=== PATIENT | female | born 1945 | race Caucasian/White ===

== ENCOUNTER 2016-07-29 06:49 | Inpatient (IN) ==
--- NOTE | 2016-07-28 21:08 | Discharge Summary ---
<Linda Moyer - Last Filed: 07/28/16 21:05> Date of Encounter: 07/28/16 - Discharge Diagnosis (1) Arthritis of left hip Priority: Primary Status: Acute (2) HTN (hypertension) Priority: Secondary Status: Chronic Qualifiers: Hypertension type: essential hypertension Qualified Code(s): I10 - Essential (primary) hypertension (3) Hypothyroid Priority: Secondary Status: Chronic Qualifiers: Hypothyroidism type: unspecified Qualified Code(s): E03.9 - Hypothyroidism , unspecified (4) DMII (diabetes mellitus, type 2) Priority: Secondary Status: Chronic Qualifiers: Diabetes mellitus complication status: with unspecified complications Diabetes mellitus senior care insulin use: unspecified senior care insulin use status Qualified Code(s): E11.8 - Type 2 diabetes mellitus with unspecified complications (5) Obesity Priority: Secondary Status: Chronic Qualifiers: Obesity type: unspecified obesity type Obesity severity: unspecified obesity severity Qualified Code(s): E66.9 - Obesity, unspecified (6) Hyponatremia Priority: Secondary Status: Chronic - Discharge Medications Home Medications: Amitriptyline HCl 100 mg PO DAILY 07/29/16 [History] Aspirin [Lo-Dose Aspirin EC] 81 mg PO DAILY 07/29/16 [History] Omeprazole 20 mg PO DAILY 07/29/16 [History] Propranolol LA (24 HR) [Inderal LA] 80 mg PO DAILY 07/29/16 [History] clonazePAM [Clonazepam] 0.5 mg PO DAILY 07/29/16 [History] Amlodipine Besylate 10 mg PO DAILY 07/30/16 [History] Levothyroxine [Synthroid] 100 mcg PO 30 07/30/16 [History] Losartan/Hydrochlorothiazide [Hyzaar 100-12.5 Tablet] 1 each PO DAILY 07/30/16 [ History] Meloxicam 7.5 mg PO BID 07/30/16 [History] Simvastatin [Zocor] 20 mg PO HS 07/30/16 [History] Venlafaxine [Effexor] 75 mg PO BID 07/30/16 [History] metFORMIN [Glucophage] 500 mg PO BIDWM 07/30/16 [History] Allergies/Adverse Reactions: Allergies codeine Allergy (Verified 07/30/16 11:12) Nausea diazepam [From Valium] Allergy (Verified 07/30/16 11:12) Agitated Primary care physician: Navneet Gustafson MD - Patient Status Disposition: Transfer Inpatient Rehab Fac Condition: Good - Discharge Instructions Follow Up With: Navneet Gustafson MD [Primary Care Provider] - - Hospital Course Hospital course: Ms. Lebron is a 70 year old female - Time Spent with Patient Total time spent providing and/or coordinating discharge services: <Charles Ribera - Last Filed: 08/01/16 08:08> Date of Encounter: 08/01/16 Time of Encounter: 08:08 - Discharge Diagnosis (1) Arthritis of left hip Priority: Primary Status: Acute (2) HTN (hypertension) Priority: Secondary Status: Chronic Qualifiers: Hypertension type: essential hypertension Qualified Code(s): I10 - Essential (primary) hypertension (3) Hypothyroid Priority: Secondary Status: Chronic Qualifiers: Hypothyroidism type: unspecified Qualified Code(s): E03.9 - Hypothyroidism , unspecified (4) DMII (diabetes mellitus, type 2) Priority: Secondary Status: Chronic Qualifiers: Diabetes mellitus complication status: with unspecified complications 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 Lebron is a 70 year old female The patient had an uneventful postoperative course. They received antibiotics and physical therapy and were discharged in stable condition. There will follow -up in the office in 2 weeks. Aspirin DVT prophylaxis - Time Spent with Patient Total time spent providing and/or coordinating discharge services:
[2016-07-29] MEDS ORDERED: Lidocaine -MPF 1% 2 ML VIAL ID ONE (07:43)
[2016-07-29] MEDS ORDERED: CeFAZolin Pre 2,000 MG/100 ML 2,000 MG/100 ML BAG IVPB ONE (07:43)
[2016-07-29] MEDS ORDERED: Ringers Solution, Lactated 1,000 ML IVC SCH ×3 (07:45→12:12)
--- NOTE | 2016-07-29 07:50 | History & Physical Report ---
Date of Encounter: 07/29/16 Time of Encounter: 07:50 24 Hour HP Update - Instructions Instructions: If the History and Physical is less than 30 days old and was completed prior to A.M. admission and or procedure and has NOT been updated on calendar day of procedure please complete this update prior to performing procedure. - Update Patient reports changes in Medical Condition: No Changes in examination, assessment, or condition: No Changes in Medication: No Preop tests/diagnostics Reviewed: Yes Surgery Remains Indicated: Yes Consent for Planned Operative Procedure(s) Verified: Yes - Pre-Operative Checklist Preoperative Checklist Indicated: No Prophylactic Antibiotic Ordered: Yes Is VTE Prophylaxis Indicated?: Yes
[2016-07-29] MEDS ORDERED: Famotidine 20 MG/2 ML VIAL IVP ONE (08:16)
[2016-07-29] MEDS ORDERED: Gabapentin 300 MG CAPSULE PO ONE (08:17)
[2016-07-29] MEDS ORDERED: Scopolamine Patch 1.5 MG PATCH.TD72 TD ONE (08:24)
[2016-07-29] MEDS ORDERED: *HR* Midazolam HCl 2 MG/2 ML VIAL ONE (08:27)
[2016-07-29] MEDS ORDERED: *HR* FentaNYL (PF) 100 MCG/2 ML VIAL ONE (08:27)
[2016-07-29] MEDS ORDERED: *HR* Propofol 200 MG/20 ML VIAL IVP ONE (08:27)
--- NOTE | 2016-07-29 08:27 | Anesthesia Evaluation PreOp ---
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 Significant HX Other Medical History: Diabetes Type II (Accu Check 130), GERD, Other (PUD) Anesthesia History: Past Anesthesia, Problems (Severe N/V patient states Scopolamine helpful in past) : No Alcohol Use: none Drug use: none Medications and Allergies Amitriptyline HCl [Amitriptyline HCl] 1 tab PO DAILY 07/29/16 [History] Aspirin [Lo-Dose Aspirin EC] 81 mg PO DAILY 07/29/16 [History] Glipizide/Metformin HCl [Glipizide-Metformin 2.5-500 mg] 1 tab PO DAILY [History] Levothyroxine Sodium [Tirosint] 50 mcg PO DAILY 07/29/16 [History] Omeprazole [Omeprazole] 20 mg pe PO DAILY 07/29/16 [History] Propranolol LA (24 HR) [Inderal LA] 80 mg pe PO DAILY 07/29/16 [History] amLODIPine [Norvasc] mg PO 07/29/16 [History] clonazePAM [Clonazepam] 0.5 mg PO DAILY 07/29/16 [History] Allergies codeine Allergy (Verified 08/18/15 07:32) Nausea diazepam [From Valium] Allergy (Verified 08/18/15 07:32) Agitated - Meds/Allergy Pre-op Review Medications Reviewed: Yes Allergies Reviewed: Yes Beta Blockers on Current Med List: No Anesthesia Results - Labs Laboratory Tests 07/19/16 07/19/16 12:15 12:15 Hgb 13.5 Hct 39.7 Plt Count 274 Sodium 131 L Potassium 4.0 BUN 16 Creatinine 0.77 - Imaging EKG: report reviewed (SR) Anesthesia Exam O2 Sat Height 1.65 m Height 1.65 m Height 1.65 m Weight 104.326 kg Weight 104.326 kg Weight 104.326 kg O2 Sat by Pulse Oximetry 95 O2 Sat by Pulse Oximetry 95 Vital Signs Temp Pulse Resp BP Pulse Ox 98.0 F 77 18 146/79 95 07/29/16 07:17 07/29/16 07:17 07/29/16 07:17 07/29/16 07:17 07/29/16 07:17 Height: 5'5 Weight: 230 lbs NPO (# of Hours): MN Pain Scale: 0 - HEENT Pupil (Motor): Pupils equal, EOMI Mallampati: III Teeth: Edentulous Oral Opening: Less than or equal to 3 - ANTI [employer] OFFICER LOC: Oriented ANTI [employer]PERATIONS OFFICER Motor: Normal RUE, Normal LUE, Normal RLE, Normal LLE, Normal Face ANTI [employer] OFFICER Sensory: Normal: RUE, LUE, RLE, LLE, Face - Cardiac Rhythm: Regular Murmur: None JVD: No Carotid Bruit: No - Pulmonary Breath Sounds: bilateral Clear Anesthesia Assess/Plan ASA Score: 3 (HTN DM PUD) Modified [place] Scale for Level of Consciousness: Cooperative, oriented, and tranquil Anesthetic Plan: General Monitoring Plan: Standard Monitors Recovery Plan: PACU (Discussed GA, agrees to proceed)
[2016-07-29] MEDS ORDERED: Lidocaine -MPF 4% 5 ML AMPUL ONE (08:29)
[2016-07-29] MEDS ORDERED: Lidocaine -MPF 2% 2 ML VIAL ONE (08:29)
[2016-07-29] MEDS ORDERED: Dexamethasone 4 MG/ML VIAL ONE (09:51)
[2016-07-29] MEDS ORDERED: Ondansetron 4 MG/2 ML VIAL ONE (09:51)
[2016-07-29] MEDS ORDERED: *HR* HYDROmorphone 2 MG/ML SYRINGE ONE (09:53)
[2016-07-29] MEDS ORDERED: Ondansetron 4 MG/2 ML VIAL IVP ONE (09:55)
[2016-07-29] MEDS ORDERED: Albuterol 2.5 MG/3 ML NEBULIZER IH ONE (09:55)
[2016-07-29] MEDS ORDERED: *HR* Meperidine 25 MG/ML SYRINGE IVP PRN (09:55)
[2016-07-29] MEDS ORDERED: *HR* HYDROmorphone (PF) 1 MG/ML SYRINGE IVP PRN ×2 (09:55→12:12)
[2016-07-29] MEDS ORDERED: Naloxone 0.4 MG/ML INJ IVP PRN ×2 (09:55→12:12)
[2016-07-29] MEDS ORDERED: *HR* Labetalol 100 MG/20 ML MDV IVP PRN (09:55)
--- NOTE | 2016-07-29 10:44 | Orthopedic Operative Note ---
Date of procedure: 07/29/16 Pre-op diagnosis: Left hip arthritis Post-op diagnosis: same Procedure: Procedure: Left Total Hip Replacment Estimated blood loss: 200 cc Hardware: Metal and polyethylene replacement. Biomet DM Cup: 50 G7 fin cup Femoral size 13 echo full profile lateralized stem Head: 3 head with Barbie Procedural Notes: Left hip grade 4 arthritis femoral head acetabular Operative procedure: The patient was brought to the operating room and placed on the operating room table. After general anesthesia was administered the patient was placed in the lateral decubitus position with the operative leg up. All pressure points were padded appropriately and the head was stabilized in the neutral position. The operative extremity was prepped and draped in the sterile surgical fashion patient received IV antibiotic prior to skin incision. A standard posterior approach is made to the operative hip, the incision was made through the skin and subcutaneous tissue hemostasis was obtained with Bovie cautery. Using careful sharp dissection the fascia was identified and incised exposing the external rotators. The external rotators were released off the greater trochanter and tagged with #2 FiberWire suture. The capsule was T'd open and the hip was brought into internal rotation. Patient noted to have grade 4 arthritic changes femoral head. The femoral neck cut was made at the appropriate level. An anterior capsulotomy was performed for the anterior retractor. Soft tissues removed from the acetabulum. Patient noted to have grade 4 arthritic changes acetabulum. Acetabulum was first reamed medially, and then reamed in 15 degrees of anteversion and 45 degrees off the horizontal. It was reamed up to the appropriate size 50. The appropriate-sized 50 acetabular cup was impacted in place in 15 degrees of anteversion and 45 degrees off the horizontal. This had good fit and fixation. The hip was brought back in to internal rotation and prepared with the switch box installer followed by the canal finder followed by broaching process in 20 degrees anteversion. It was broached up to the appropriate size 13. The femoral implant was impacted in place in 20 degrees of anteversion. Trial reduction found the hip to be stable with 3 head and Barbie. The trials were removed and the real implants were impacted in place. The hip was reduced, patient had apparent equal leg lengths. The hip had excellent stability with forward flexion to 90 degrees adduction of 30 degrees and internal rotation of 60 degrees. The hip had no shuck. The hips after 2 minutes with a Betadine saline solution. It was irrigated out with 2 L of pulse irrigation. The external rotators were reattached to drill holes in the greater trochanter. Fascia was closed with a running #2 PDS suture. The deep tissue was irrigated and closed deep with #1 PDS suture superficially with 0 PDS suture and skin was closed with skin evan. The patient was placed in a sterile dressing and abduction pillow. The patient was extubated and transferred to the recovery room in stable condition. Anesthesia: BRENDA Surgeon: Charles Ribera Wet Process Miller Head: Linda Moyer Condition: stable Disposition: PACU
[2016-07-29 12:01] LABS: Hematocrit 38.2 % (35.3-44.9); Hemoglobin 12.6 g/dL (11.5-15.4)
[2016-07-29] MEDS ORDERED: Ondansetron 4 MG/2 ML VIAL IVP PRN (12:12)
[2016-07-29] MEDS ORDERED: MOM Conc 10 ML UD.LIQ PO PRN (12:12)
[2016-07-29] MEDS ORDERED: Sennosides 8.6 MG TABLET PO PRN (12:12)
[2016-07-29] MEDS ORDERED: Temazepam 15 MG CAPSULE PO PRN (12:12)
[2016-07-29] MEDS ORDERED: D5% in Water 1,000 ML IVC PRN (12:12)
[2016-07-29] MEDS ORDERED: *HR* Dextrose 50 % in Water (Syg) 50 ML SYRINGE IVP PRN (12:12)
[2016-07-29] MEDS ORDERED: *HR* OxyCODONE Immed Rel 5 MG TABLET PO PRN (12:12)
[2016-07-29] MEDS ORDERED: Dextrose Gel 15 GM PO PRN ×2 (12:12)
[2016-07-29] MEDS: Insulin LISPRO 300 UNITS/3 ML VIAL SQ SCH ×3 (14:00→20:58)
[2016-07-29] MEDS: Multivit/Ca/Min/Fe/FA 1 TAB TABLET PO SCH (17:15)
[2016-07-29] MEDS: Ascorbic Acid 500 MG TABLET PO SCH (17:16)
[2016-07-29] MEDS ORDERED: *HR* Enoxaparin 30 MG/0.3 ML SYRINGE SQ SCH (18:00)
[2016-07-29] MEDS: ceFAZolin 2,000 MG in D5% in Water 100 ML IVPB SCH (18:46)
[2016-07-29] MEDS: *HR* Enoxaparin 30 MG/0.3 ML SYRINGE SQ SCH (18:46)
[2016-07-29] MEDS: clonazePAM 0.5 MG TABLET PO SCH (21:43)
[2016-07-30] MEDS: *HR* OxyCODONE Immed Rel 5 MG TABLET PO PRN ×4 (01:28→16:04)
[2016-07-30] MEDS: ceFAZolin 2,000 MG in D5% in Water 100 ML IVPB SCH (02:04)
[2016-07-30] MEDS: *HR* Enoxaparin 30 MG/0.3 ML SYRINGE SQ SCH ×2 (05:18→16:40)
[2016-07-30 05:42] LABS: Hematocrit 31.1 % (35.3-44.9)
[2016-07-30 05:47] LABS: Hemoglobin 10.7 g/dL (11.5-15.4)
[2016-07-30 05:58] LABS: BUN/Creatinine Ratio 23 (6-26); Blood Urea Nitrogen 16 mg/dL (7-20); Calcium 9.2 mg/dL (8.6-10.8); Carbon Dioxide 25 mEq/L (19-29); Chloride 95 mEq/L (98-109); Glucose 126 mg/dL (70-99); Osmolality,Calculated 273 (280-300); Potassium 3.9 mEq/L (3.5-4.5); Sodium 130 mEq/L (136-145); eGFR For African Americans > 60 (> 60); eGFR For Non-African Americans > 60 (> 60)
--- NOTE | 2016-07-30 06:28 | Orthopedics Progress Note ---
Date of Encounter: 07/30/16 Time of Encounter: 06:28 - Assessment and Plan (1) Arthritis of left hip Current Visit: Yes Status: Acute (2) HTN (hypertension) Current Visit: Yes Status: Chronic Qualifiers: Hypertension type: essential hypertension Qualified Code(s): I10 - Essential (primary) hypertension (3) Hypothyroid Current Visit: Yes Status: Chronic Qualifiers: Hypothyroidism type: unspecified Qualified Code(s): E03.9 - Hypothyroidism , unspecified (4) DMII (diabetes mellitus, type 2) Current Visit: Yes Status: Chronic Qualifiers: Diabetes mellitus complication status: with unspecified complications Diabetes mellitus custodial insulin use: unspecified custodial insulin use status Qualified Code(s): E11.8 - Type 2 diabetes mellitus with unspecified complications (5) Obesity Current Visit: Yes Status: Chronic Qualifiers: Obesity type: unspecified obesity type Obesity severity: unspecified obesity severity Qualified Code(s): E66.9 - Obesity, unspecified Subjective Interval history: Patient was seen this morning doing well without complaints. Afebrile vital signs stable. Operative extremity: Neurovascularly intact Dressing clean dry and intact Calves nontender Assessment and plan: Continue with postoperative care Hematocrit 31 Objective Vital signs: Vital Signs Temp Pulse Resp BP Pulse Ox 07/30/16 03:54 98.2 F 88 14 124/73 98 07/30/16 00:42 98.2 F 90 14 133/65 96 07/29/16 15:25 97.7 F 68 12 121/69 96 07/29/16 14:15 97.7 F 68 12 130/73 97 07/29/16 13:16 97.7 F 69 10 134/72 96 07/29/16 12:52 97.7 F 65 11 124/74 95 07/29/16 12:32 97 07/29/16 12:30 97.9 F 67 10 128/71 94 07/29/16 12:15 97.9 F 71 10 128/73 96 07/29/16 11:57 74 10 149/89 95 07/29/16 11:47 99.1 F 76 10 159/91 97 07/29/16 11:37 76 12 160/86 98 07/29/16 11:27 79 12 168/94 98 07/29/16 11:17 77 10 156/110 96 07/29/16 11:07 89 8 173/102 92 07/29/16 10:57 99.0 F 76 8 151/81 96 07/29/16 08:00 98.0 F 77 18 146/79 95 07/29/16 07:17 98.0 F 77 18 146/79 95 Intake and Output 07/29/16 07/29/16 07/30/16 15:59 23:59 07:59 Intake Total 100 / 100 550 / 550 595 / 595 Output Total 200 / 200 700 / 700 0 / 0 Balance -100 / -100 -150 / -150 595 / 595 Intake: IV Fluids 100 / 100 100 / 100 Ancef Premix 2,000 MG/100 100 / 100 ML 2,000 mg In 100 ml @ 200 mls/hr IVPB PREOP ONE Rx#:[id number] Ancef 2,000 MG In 100 / 100 Dextrose 5% 100 ML @ 200 mls/hr IVPB Q8H JANET Rx#: [id number] Oral 0 / 0 450 / 450 595 / 595 Output: Urine 0 / 0 700 / 700 0 / 0 Estimated Blood Loss 200 / 200 Other: Weight 104.326 kg 104.2 kg Blood Glucose* 139 228 Patient Weight 07/30/16 23:59 Weight 104.2 kg - Labs CBC & BMP: 07/30/16 05:18 07/30/16 05:18 Labs: Abnormal lab results Hgb 10.7 g/dL (11.5-15.4) L D 07/30/16 05:18 Hct 31.1 % (35.3-44.9) L 07/30/16 05:18 Sodium 130 mEq/L (136-145) L 07/30/16 05:18 Chloride 95 mEq/L (98-109) L 07/30/16 05:18 Glucose 126 mg/dL (70-99) H 07/30/16 05:18 POC Glucose 139 (58-89) H 07/29/16 15:58 Calculated Osmolality 273 (280-300) L 07/30/16 05:18 - VTE Documentation of Mechanical Device: Venous foot pump, device Consult Discharge Plan - Plan Referrals: Navneet Gustafson MD [Primary Care Provider] -
[2016-07-30] MEDS: Insulin LISPRO 300 UNITS/3 ML VIAL SQ SCH ×4 (08:37→20:24)
[2016-07-30] MEDS: *HR* GlipiZIDE 5 MG TABLET PO SCH (08:58)
[2016-07-30] MEDS: Ascorbic Acid 500 MG TABLET PO SCH ×2 (08:58→16:40)
[2016-07-30] MEDS: *HR* Metformin 500 MG TABLET PO SCH (08:58)
[2016-07-30] MEDS: clonazePAM 0.5 MG TABLET PO SCH (08:59)
[2016-07-30] MEDS: amLODIPine 5 MG TABLET PO SCH (08:59)
[2016-07-30] MEDS: Propranolol LA (24 HR) 80 MG CAP.SA.24H PO SCH (08:59)
[2016-07-30] MEDS: Multivit/Ca/Min/Fe/FA 1 TAB TABLET PO SCH (08:59)
[2016-07-30] MEDS: Aspirin Enteric Coated 81 MG Tablet PO SCH (08:59)
[2016-07-30] MEDS ORDERED: clonazePAM 0.5 MG TABLET PO SCH ×2 (09:00→22:00)
[2016-07-31] MEDS: *HR* Enoxaparin 30 MG/0.3 ML SYRINGE SQ SCH ×2 (05:31→16:59)
[2016-07-31 06:18] LABS: Hematocrit 31.7 % (35.3-44.9); Hemoglobin 10.7 g/dL (11.5-15.4)
[2016-07-31 07:09] LABS: BUN/Creatinine Ratio 23 (6-26); Blood Urea Nitrogen 16 mg/dL (7-20); Calcium 9.2 mg/dL (8.6-10.8); Carbon Dioxide 28 mEq/L (19-29); Chloride 95 mEq/L (98-109); Glucose 153 mg/dL (70-99); Osmolality,Calculated 278 (280-300); Potassium 3.8 mEq/L (3.5-4.5); Sodium 132 mEq/L (136-145); eGFR For African Americans > 60 (> 60); eGFR For Non-African Americans > 60 (> 60)
--- NOTE | 2016-07-31 08:18 | Orthopedics Progress Note ---
Date of Encounter: 07/31/16 Time of Encounter: 08:18 - Assessment and Plan (1) Arthritis of left hip Current Visit: Yes Status: Acute (2) HTN (hypertension) Current Visit: Yes Status: Chronic Qualifiers: Hypertension type: essential hypertension Qualified Code(s): I10 - Essential (primary) hypertension (3) Hypothyroid Current Visit: Yes Status: Chronic Qualifiers: Hypothyroidism type: unspecified Qualified Code(s): E03.9 - Hypothyroidism , unspecified (4) DMII (diabetes mellitus, type 2) Current Visit: Yes Status: Chronic Qualifiers: Diabetes mellitus complication status: with unspecified complications Diabetes mellitus longterm insulin use: unspecified longterm insulin use status Qualified Code(s): E11.8 - Type 2 diabetes mellitus with unspecified complications (5) Obesity Current Visit: Yes Status: Chronic Qualifiers: Obesity type: unspecified obesity type Obesity severity: unspecified obesity severity Qualified Code(s): E66.9 - Obesity, unspecified Subjective Interval history: Patient was seen this morning doing well without complaints. Afebrile vital signs stable. Operative extremity: Neurovascularly intact Dressing clean dry and intact Calves nontender Assessment and plan: Continue with postoperative care Hematocrit 31.8 Objective Vital signs: Vital Signs Temp Pulse Resp BP Pulse Ox 07/31/16 07:17 98.7 F 85 16 135/81 95 07/31/16 00:07 98.8 F 86 19 126/62 95 07/30/16 20:11 97.9 F 83 17 135/77 90 07/30/16 16:08 98.6 F 94 16 110/66 94 07/30/16 11:46 98.6 F 107 18 116/66 94 Intake and Output 07/30/16 07/31/16 07/31/16 23:59 07:59 15:59 Other: Stool Size Smear Stool Consistency loose Stool Characteristics Mucoid Blood Glucose* 126 155 - Labs CBC & BMP: 07/31/16 06:02 07/31/16 06:44 Labs: Abnormal lab results Hgb 10.7 g/dL (11.5-15.4) L 07/31/16 06:02 Hct 31.7 % (35.3-44.9) L 07/31/16 06:02 Sodium 132 mEq/L (136-145) L 07/31/16 06:44 Chloride 95 mEq/L (98-109) L 07/31/16 06:44 Glucose 153 mg/dL (70-99) H 07/31/16 06:44 POC Glucose 188 (58-89) H 07/30/16 16:16 Calculated Osmolality 278 (280-300) L 07/31/16 06:44 - VTE Documentation of Mechanical Device: Venous foot pump, device Consult Discharge Plan - Plan Referrals: Navneet Gustafson MD [Primary Care Provider] -
[2016-07-31] MEDS: Insulin LISPRO 300 UNITS/3 ML VIAL SQ SCH ×4 (09:22→20:07)
[2016-07-31] MEDS: clonazePAM 0.5 MG TABLET PO SCH (09:23)
[2016-07-31] MEDS: Ascorbic Acid 500 MG TABLET PO SCH ×2 (09:23→16:37)
[2016-07-31] MEDS: *HR* Metformin 500 MG TABLET PO SCH (09:24)
[2016-07-31] MEDS: amLODIPine 5 MG TABLET PO SCH (09:24)
[2016-07-31] MEDS: Aspirin Enteric Coated 81 MG Tablet PO SCH (09:24)
[2016-07-31] MEDS: *HR* OxyCODONE Immed Rel 5 MG TABLET PO PRN (09:24)
[2016-07-31] MEDS: Multivit/Ca/Min/Fe/FA 1 TAB TABLET PO SCH (09:24)
[2016-07-31] MEDS: *HR* GlipiZIDE 5 MG TABLET PO SCH (09:24)
[2016-07-31] MEDS: Propranolol LA (24 HR) 80 MG CAP.SA.24H PO SCH (09:24)
[2016-08-01] MEDS: *HR* Enoxaparin 30 MG/0.3 ML SYRINGE SQ SCH (05:16)
[2016-08-01] MEDS: *HR* OxyCODONE Immed Rel 5 MG TABLET PO PRN ×2 (06:22→10:49)
--- NOTE | 2016-08-01 08:09 | Orthopedics Progress Note ---
Date of Encounter: 08/01/16 Time of Encounter: 08:09 - Assessment and Plan (1) Arthritis of left hip Current Visit: Yes Status: Acute (2) HTN (hypertension) Current Visit: Yes Status: Chronic Qualifiers: Hypertension type: essential hypertension Qualified Code(s): I10 - Essential (primary) hypertension (3) Hypothyroid Current Visit: Yes Status: Chronic Qualifiers: Hypothyroidism type: unspecified Qualified Code(s): E03.9 - Hypothyroidism , unspecified (4) DMII (diabetes mellitus, type 2) Current Visit: Yes Status: Chronic Qualifiers: Diabetes mellitus complication status: with unspecified complications Diabetes mellitus [facility] insulin use: unspecified [facility] insulin use status Qualified Code(s): E11.8 - Type 2 diabetes mellitus with unspecified complications (5) Obesity Current Visit: Yes Status: Chronic Qualifiers: Obesity type: unspecified obesity type Obesity severity: unspecified obesity severity Qualified Code(s): E66.9 - Obesity, unspecified Subjective Interval history: Patient was seen this morning doing well without complaints. Afebrile vital signs stable. Operative extremity: Neurovascularly intact Dressing clean dry and intact Calves nontender Assessment and plan: Continue with postoperative care dc today Objective Vital signs: Vital Signs Temp Pulse Resp BP Pulse Ox 07/31/16 23:28 99.1 F 76 17 117/69 92 07/31/16 19:59 99.0 F 78 16 115/74 93 07/31/16 16:34 99.2 F 78 16 115/71 96 07/31/16 11:00 98.6 F 87 16 108/70 93 Intake and Output 07/31/16 08/01/16 08/01/16 23:59 07:59 15:59 Intake Total 100 / 100 Output Total 200 / 200 Balance -100 / -100 Intake: Oral 100 / 100 Output: Urine 200 / 200 Other: # Voids 1 Weight 104.5 kg Blood Glucose* 123 Patient Weight 08/01/16 23:59 Weight 104.5 kg - Labs CBC & BMP: 07/31/16 06:02 07/31/16 06:44 Labs: Abnormal lab results Hgb 10.7 g/dL (11.5-15.4) L 07/31/16 06:02 Hct 31.7 % (35.3-44.9) L 07/31/16 06:02 Sodium 132 mEq/L (136-145) L 07/31/16 06:44 Chloride 95 mEq/L (98-109) L 07/31/16 06:44 Glucose 153 mg/dL (70-99) H 07/31/16 06:44 POC Glucose 123 (58-89) H 07/31/16 19:52 Calculated Osmolality 278 (280-300) L 07/31/16 06:44 - VTE Documentation of Mechanical Device: Venous foot pump, device Consult Discharge Plan - Plan Referrals: Navneet Gustafson MD [Primary Care Provider] -
[2016-08-01 08:36] VITALS: BP 107/67
[2016-08-01] MEDS: Insulin LISPRO 300 UNITS/3 ML VIAL SQ SCH (08:40)
[2016-08-01] MEDS: Ascorbic Acid 500 MG TABLET PO SCH (08:41)
[2016-08-01] MEDS: *HR* GlipiZIDE 5 MG TABLET PO SCH (08:41)
[2016-08-01] MEDS: *HR* Metformin 500 MG TABLET PO SCH (08:41)
[2016-08-01] MEDS: amLODIPine 5 MG TABLET PO SCH (08:42)
[2016-08-01] MEDS: clonazePAM 0.5 MG TABLET PO SCH (08:42)
[2016-08-01] MEDS: Multivit/Ca/Min/Fe/FA 1 TAB TABLET PO SCH (08:42)
[2016-08-01] MEDS: Aspirin Enteric Coated 81 MG Tablet PO SCH (08:42)
[2016-08-01] MEDS: Propranolol LA (24 HR) 80 MG CAP.SA.24H PO SCH (08:42)
== END 2016-08-01 12:30 | DRG 469 ==
LOC: SAMDAY 06:49 → 3NENU 12:12
PROVIDERS: ADMIT Orthopaedic Surgery; ATTEND Orthopaedic Surgery